=== PATIENT | female | born 1990 | race Caucasian/White ===

== ENCOUNTER 2023-10-01 10:46 | Emergency (ER) | payer OTHER ==
[~2023-10-01] VITALS: Ht 157.5 cm; Wt 72.6 kg
[~2023-10-01 10:46] MED LIST: Colace100 MG PO; IBUP800 PO; OXYACE5T PO; Prenatal Table1 EAC1 PO
[2023-10-01 11:18] LABS: BASOPHILS ABSOLUTE AUTO 0.05 K/mm3 (0.00-0.23); BASOPHILS PERCENT AUTO 0 % (0-2); EOSINOPHILS ABSOLUTE AUTO 0.21 K/mm3 (0.00-0.68); EOSINOPHILS PERCENT AUTO 2 % (0-6); Hemoglobin 13.5 g/dL (11.5-16.0); IMMATURE GRAN ABSOLUTE AUTO 0.03 K/mm3 (0.00-0.10); IMMATURE GRAN PERCENT AUTO 0 % (0-1); LYMPHOCYTES PERCENT AUTO 31 % (21-46); MONOCYTES ABSOLUTE AUTO 0.74 K/mm3 (0.16-1.47); MONOCYTES PERCENT AUTO 6 % (4-13); Mean Corpuscular HGB 28.5 pg (26.0-34.0); Mean Corpuscular HGB Conc 32.9 g/dL (31.5-36.5); Mean Corpuscular Volume 87 fL (80-100); Mean Platelet Volume 10.4 fL (9.1-12.4); NEUTROPHILS ABSOLUTE AUTO 7.83 K/mm3 (1.96-9.15); NEUTROPHILS PERCENT AUTO 61 % (41-73); Platelet Count 249 K/mm3 (150-400); RDW Coefficient Variation 12.8 % (11.7-14.2); RDW Standard Deviation 40.2 fL (35.1-46.3); Red Blood Cell Count 4.74 M/mm3 (3.80-5.20); White Blood Cell Count 12.86 K/mm3 (4.00-11.30)
[2023-10-01 11:53] LABS: Albumin, Blood 3.5 g/dL (3.4-5.0); Albumin/Globulin Ratio 0.8 (0.8-1.8); Bilirubin, Total 0.2 mg/dL (0.1-1.0); Bun/Creatinine Ratio 21.3 (12.0-20.0); Calcium, Blood 9.1 mg/dL (8.5-10.1); Creatinine, Blood 0.66 mg/dL (0.40-1.00); Globulin, Blood 4.4 g/dL (2.2-4.0); Potassium, Blood 3.8 mmol/L (3.5-5.5); Total Protein, Blood 7.9 g/dL (6.4-8.2)
[2023-10-01 13:19] VITALS: BP 122/73
== END 2023-10-01 13:25 | disposition home or self-care (01) ==
LOC: ER 10:46
PROVIDERS: Physician Assistant
DX: I47.10 Supraventricular tachycardia, unspecified (principal); Z79.899 Other long term (current) drug therapy
CPT/HCPCS: 80053; 83735; 84443; 85025; 93005; 93010; 99284-25

== ENCOUNTER → 2024-06-15 | Outpatient (CLI) | payer OTHER ==
[2024-06-18 17:07] LABS: APTIMA MEDIA TYPE Urine; C. TRACHOMATIS BY TMA Negative (Negative); N. GONORRHOEAE BY TMA Negative (Negative); SPECIMEN SOURCE Urine
== END | disposition home or self-care (01) ==
LOC: LAB 16:20 → LAB SHORT 16:20
PROVIDERS: Registered Nurse Community Health
DX: Z34.92 Encounter for supervision of normal pregnancy, unspecified, second trimester (principal)
CPT/HCPCS: 87491; 87591

== ENCOUNTER → 2024-07-28 | Outpatient (CLI) | payer OTHER ==
[2024-07-28 14:33] LABS: Hematocrit 39.7 % (33.0-51.0); Hemoglobin 11.9 g/dL (11.5-16.0)
== END | disposition home or self-care (01) ==
LOC: LAB SHORT 10:51 → LAB 10:51
PROVIDERS: Registered Nurse Community Health
DX: Z34.93 Encounter for supervision of normal pregnancy, unspecified, third trimester (principal)
CPT/HCPCS: 82950; 85014; 85018

== ENCOUNTER → 2024-09-13 | Outpatient (CLI) | payer OTHER | LOC: LAB SHORT 19:01 → LAB 19:01 | DX: Z34.93 Encounter for supervision of normal pregnancy, unspecified, third trimester (principal) | CPT/HCPCS: 87081; 87150 ==

== ENCOUNTER 2024-10-09 02:56 | Inpatient (IN) | payer OTHER ==
[~2024-10-09] VITALS: Ht 157.5 cm; Wt 83.4 kg
[2024-10-09] VITALS (37 sets, daily range): BP systolic 96–131; BP diastolic 53–75
[2024-10-09] MEDS ORDERED: Calcium Carbonate 500 MG Tab Chew PO ONE (05:50)
[2024-10-09] MEDS ORDERED: Acetaminophen 500 MG Tab PO PRN (08:30)
[2024-10-09] MEDS ORDERED: Misoprostol 200 MCG Tab PR PRN ×2 (08:30→17:40)
[2024-10-09] MEDS ORDERED: Oxytocin 10 Unit / ML Vial IM PRN (08:30)
[2024-10-09] MEDS ORDERED: Ondansetron HCl 2 MG / ML 2ML Vial IV PRN ×2 (08:30→13:15)
[2024-10-09] MEDS ORDERED: OXYTOCIN/RINGER'S LACTATE 500 ML IV PRN (08:30)
[2024-10-09] MEDS ORDERED: Misoprostol 200 MCG Tab BC PRN (08:30)
[2024-10-09] MEDS ORDERED: Lactated Ringer's 1,000 ML IV PRN (08:30)
[2024-10-09] MEDS ORDERED: Tranexamic Acid 100 ML IV SCH (08:30)
[2024-10-09] MEDS ORDERED: Methylergonovine Maleate 0.2MG / ML 1ML Amp IM PRN ×2 (08:30→17:40)
[2024-10-09] MEDS ORDERED: Carboprost Tromethamine 250 MCG/ML 1ML Amp IM PRN (08:30)
[2024-10-09] MEDS ORDERED: Calcium Carbonate 500 MG Tab Chew PO PRN (08:35)
[2024-10-09 09:24] LABS: BASOPHILS ABSOLUTE AUTO 0.03 K/mm3 (0.00-0.23); BASOPHILS PERCENT AUTO 0 % (0-2); EOSINOPHILS PERCENT AUTO 1 % (0-6); Hematocrit 36.4 % (33.0-51.0); Hemoglobin 12.2 g/dL (11.5-16.0); IMMATURE GRAN ABSOLUTE AUTO 0.05 K/mm3 (0.00-0.10); IMMATURE GRAN PERCENT AUTO 0 % (0-1); LYMPHOCYTES ABSOLUTE AUTO 2.43 K/mm3 (0.84-5.20); LYMPHOCYTES PERCENT AUTO 17 % (21-46); MONOCYTES ABSOLUTE AUTO 0.59 K/mm3 (0.16-1.47); MONOCYTES PERCENT AUTO 4 % (4-13); Mean Corpuscular HGB 28.4 pg (26.0-34.0); Mean Corpuscular HGB Conc 33.5 g/dL (31.5-36.5); Mean Corpuscular Volume 85 fL (80-100); Mean Platelet Volume 11.4 fL (9.1-12.4); NEUTROPHILS ABSOLUTE AUTO 11.51 K/mm3 (1.96-9.15); NEUTROPHILS PERCENT AUTO 78 % (41-73); Platelet Count 190 K/mm3 (150-400); RDW Coefficient Variation 13.8 % (11.7-14.2); RDW Standard Deviation 42.5 fL (35.1-46.3); White Blood Cell Count 14.71 K/mm3 (4.00-11.30)
[2024-10-09] MEDS ORDERED: Lactated Ringer's 1,000 ML IV SCH ×3 (12:15→17:45)
[2024-10-09] MEDS ORDERED: FentaNYL 2mcg/ml-Bup 0.1% Epd 250 ML EPI PRN (12:15)
[2024-10-09] MEDS ORDERED: ePHEDrine Sulfate 50 MG/ML 1ML Injection XX PRN (12:15)
[2024-10-09] MEDS ORDERED: Metoclopramide HCl 5MG / ML 2ML Vial IV PRN (13:10)
[2024-10-09] MEDS ORDERED: DiphenhydrAMINE HCl 50 MG/ML 1ML Vial IV PRN (13:15)
[2024-10-09] MEDS ORDERED: Naloxone HCl 0.4MG / ML 1ML Vial IV PRN (13:15)
[2024-10-09] MEDS ORDERED: ePHEDrine Sulfate 50 MG/ML 1ML Injection IV PRN ×2 (13:15→13:50)
[2024-10-09] MEDS ORDERED: Measles/Mumps/Rubella Vaccine 0.5 ML Vial SC ONE (17:40)
[2024-10-09] MEDS ORDERED: Diphth,Pertuss(Acell),Tet Vac 0.5 ML VIAL IM ONE (17:45)
[2024-10-09] MEDS ORDERED: Ketorolac Tromethamine 30mg Vial IV PRN (17:45)
[2024-10-09] MEDS ORDERED: Ibuprofen 400 MG Tab PO PRN (17:45)
[2024-10-09] MEDS ORDERED: Witch Hazel/Glycerin PADS TOP PRN (17:45)
[2024-10-09] MEDS ORDERED: Docusate Sodium 100 MG Cap PO PRN (17:45)
[2024-10-09] MEDS ORDERED: FLU VACC TS2024-25(6MOS UP)/PF 45 MCG/0.5 ML SYRINGE IM ONE (17:45)
[2024-10-09] MEDS ORDERED: Oxytocin 10 Unit / ML Vial IM ONE (17:50)
[2024-10-09] MEDS ORDERED: Benzocaine Topical Anesthetic Spray 60GM TOP PRN (17:50)
[2024-10-09] MEDS ORDERED: Acetaminophen 325 MG TABLET PO PRN (17:50)
[2024-10-09] MEDS ORDERED: OXYTOCIN/RINGER'S LACTATE 500 ML IV SCH (17:50)
[2024-10-09] MEDS ORDERED: Acetaminophen/Codeine 300-30 mg PO PRN (17:50)
[2024-10-10 07:06] LABS: BASOPHILS ABSOLUTE AUTO 0.04 K/mm3 (0.00-0.23); BASOPHILS PERCENT AUTO 0 % (0-2); EOSINOPHILS PERCENT AUTO 1 % (0-6); Hematocrit 33.3 % (33.0-51.0); IMMATURE GRAN ABSOLUTE AUTO 0.06 K/mm3 (0.00-0.10); IMMATURE GRAN PERCENT AUTO 0 % (0-1); LYMPHOCYTES ABSOLUTE AUTO 2.86 K/mm3 (0.84-5.20); LYMPHOCYTES PERCENT AUTO 19 % (21-46); MONOCYTES ABSOLUTE AUTO 0.96 K/mm3 (0.16-1.47); MONOCYTES PERCENT AUTO 6 % (4-13); Mean Corpuscular HGB 28.5 pg (26.0-34.0); Mean Corpuscular Volume 86 fL (80-100); Mean Platelet Volume 11.7 fL (9.1-12.4); NEUTROPHILS ABSOLUTE AUTO 10.98 K/mm3 (1.96-9.15); NEUTROPHILS PERCENT AUTO 73 % (41-73); Platelet Count 171 K/mm3 (150-400); RDW Coefficient Variation 13.9 % (11.7-14.2); RDW Standard Deviation 43.4 fL (35.1-46.3); Red Blood Cell Count 3.86 M/mm3 (3.80-5.20)
[2024-10-10 08:25] VITALS: BP 100/58
[2024-10-10] MEDS ORDERED: Prenatal Vit/FE Fumarate/FA 1 Tab PO SCH (09:00)
[2024-10-10 13:11] VITALS: BP 110/65
== END 2024-10-10 18:45 | disposition home or self-care (01) | DRG 807 ==
LOC: OBS 02:56 → BC 02:59 → OBS 08:45 → BC 08:47
PROVIDERS: ADMIT Registered Nurse Community Health
PROC: 10E0XZZ Delivery of Products of Conception, External Approach (ICD-10-PCS; principal; 2024-10-09)
PROC: 10907ZC Drainage of Amniotic Fluid, Therapeutic from Products of Conception, Via Natural or Artificial Opening (ICD-10-PCS; 2024-10-09)
DX: O24.420 Gestational diabetes mellitus in childbirth, diet controlled (principal); Z37.0 Single live birth; Z3A.39 39 weeks gestation of pregnancy; Z91.018 Allergy to other foods; Z98.890 Other specified postprocedural states
CPT/HCPCS: 36415; 51702; 59025; 81003; 82947; 85025; 86850; 86900; 86901; 99214; A9270; J1885; J2590; J7120